=== PATIENT | female | born 1970 | race Caucasian/White ===

== ENCOUNTER 2023-08-22 19:31 | Emergency (ER) | payer OTHER, BC, SELFPAY ==
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
[2023-08-22 19:36] VITALS: BP 150/82; BP 159/96; PULSE 68; PULSE 86; RESP 18; TEMP 36.6; O2SAT 100; O2SAT 98; BMI 35.9
[2023-08-22] MEDS: Acetaminophen 325 MG TABLET 975 MG PO (20:09)
--- NOTE | 2023-08-22 20:12 | PC.NURSE ---
pt medicated per SEP, reporting 4/10 neck pain, c-collar in place. pt pending CT/XR results.
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
[2023-08-22] MEDS: Ketorolac Tromethamine 60 MG/2 ML VIAL IM (22:26)
[2023-08-22] MEDS: Cyclobenzaprine HCl 10 MG TABLET PO (22:26)
== END 2023-08-22 22:36 | disposition home or self-care (01) ==
PROVIDERS: Emergency Provider Emergency Medicine; PCP Pediatrics
DX: S13.4XXA Sprain of ligaments of cervical spine, initial encounter (principal); V43.52XA Car driver injured in collision with other type car in traffic accident, initial encounter; Y93.89 Activity, other specified; Y92.411 Interstate highway as the place of occurrence of the external cause; Y99.9 Unspecified external cause status; M79.642 Pain in left hand; M25.561 Pain in right knee; R51.9 Headache, unspecified
CPT/HCPCS: 70450; 72125; 73120; 73560; 96372; 99283; 99284; J1885